=== PATIENT | male | born 1995 ===

== ENCOUNTER 2018-11-29 08:16 | Emergency (ER) | payer OTHER ==
[~2018-11-29] VITALS: Ht 180.3 cm; Wt 109.0 kg
--- NOTE | 2018-11-29 08:33 | NUR ---
PT TO ED FOR LBP X3-4 DAYS AND SORE THROAT SINCE LAST NIGHT. PT CONNECTED TO MONTITORS. VSS. NO NEEDS EXPRESSED. AWAITING EDMD ASSESSMENT.
[2018-11-29] MEDS ORDERED: KETOROLAC 30 MG/1 ML ONE (08:53)
[2018-11-29] MEDS ORDERED: METHOCARBAMOL 750 MG TABLET ONE (08:53)
[2018-11-29] MEDS ORDERED: METHOCARBAMOL 750 MG TABLET PO ONE (09:00)
[2018-11-29] MEDS ORDERED: KETOROLAC 30 MG/1 ML IM ONE (09:00)
--- NOTE | 2018-11-29 09:01 | NUR ---
UA COLLECTED. AND SENT. PT TO IMAGING AT THIS TIME.
[2018-11-29 09:16] LABS: MICROSCOPIC NOT IND
[2018-11-29 09:19] LABS: CULTURE INDICATED? NO
--- NOTE | 2018-11-29 09:22 | NUR ---
PT BACK FROM IMAGING. TOLERATED WELL. VSS. NO NEEDS EXPRESSED.
[2018-11-29 09:52] VITALS: BP 137/81
--- NOTE | 2018-11-29 09:52 | NUR ---
PT RESTING IN ROOM WITH FAMILY AT BS. VSS. NO NEEDS EXPRESSED. [facility]. ALL RESUTLS BACK. CHART UP FOR RECHECK.
== END 2018-11-29 10:28 | disposition home or self-care (01) ==
LOC: ED 10:17
DX: J02.8 Acute pharyngitis due to other specified organisms (principal); B97.89 Other viral agents as the cause of diseases classified elsewhere; M54.5 Low back pain
CPT/HCPCS: 72110; 81003; 87081; 87880; 96372; 99284; J1885

== ENCOUNTER 2018-12-01 06:32 | Emergency (ER) | payer OTHER, BC ==
[~2018-12-01] VITALS: Ht 182.9 cm; Wt 106.1 kg
[2018-12-01 06:38] VITALS: BP 141/91
[2018-12-01] MEDS ORDERED: DEXAMETHASONE 4 MG TABLET PO ONE (07:30)
[2018-12-01] MEDS ORDERED: DEXAMETHASONE 4 MG TABLET ONE (07:38)
[2018-12-01 08:06] LABS: BASOPHILS # (AUTO) 0.04 x10^3/uL (0-0.1); BASOPHILS % (AUTO) 1 % (0-1); EOSINOPHILS # (AUTO) 0.04 x10^3/uL (0-0.4); EOSINOPHILS % (AUTO) 0 % (1-7); LYMPHOCYTES # (AUTO) 1.15 x10^3/uL (1-3.4); LYMPHOCYTES % (AUTO) 13 % (22-44); MD NO; MEAN CORPUSCULAR HEMOGLOBIN 29.1 pg (27.5-34.5); MEAN CORPUSCULAR HGB CONC 32.2 g/dL (33.2-36.2); MEAN CORPUSCULAR VOLUME 90.2 fL (81-97); MEAN PLATELET VOLUME 7.5 fL (7.4-10.4); MONOCYTES # (AUTO) 0.93 x10^3/uL (0.2-0.8); MONOCYTES % (AUTO) 11 % (2-9); NEUTROPHILS # (AUTO) 6.51 x10^3/uL (1.8-6.8); NEUTROPHILS % (AUTO) 75 % (42-75); PLATELET COUNT 272 x10^3/uL (130-400); RED BLOOD COUNT 5.31 x10^6/uL (4.38-5.82); RED CELL DISTRIBUTION WIDTH 13.1 % (9.4-14.8)
[2018-12-01 08:08] LABS: ANION GAP 7 mmol/L (5-15); CALCIUM 9.7 mg/dL (8.5-10.1); CHLORIDE 105 mmol/L (98-107); CREATININE 0.96 mg/dL (0.7-1.3)
--- NOTE | 2018-12-01 08:36 | NUR ---
Patient given discharge instructions and they have confirmed that they understand the instructions. Patient ambulatory with steady gait.
== END 2018-12-01 08:52 | disposition home or self-care (01) ==
LOC: ED 07:14
DX: J02.8 Acute pharyngitis due to other specified organisms (principal); B97.89 Other viral agents as the cause of diseases classified elsewhere; E66.9 Obesity, unspecified
CPT/HCPCS: 36415; 80048; 85025; 86308; 99283

== ENCOUNTER 2021-03-22 11:28 | Emergency (ER) | payer OTHER, BC ==
[~2021-03-22] VITALS: Ht 185.4 cm; Wt 117.6 kg
[2021-03-22] MEDS ORDERED: ACETAMINOPHEN 500 MG TABLET PO ONE (12:00)
[2021-03-22] MEDS ORDERED: SODIUM CHLORIDE 0.9% 1,000ML IVBOLUS ONE (12:00)
[2021-03-22 12:14] LABS: BASOPHILS % (AUTO) 1 % (0-1); EOSINOPHILS % (AUTO) 0 % (1-7); LYMPHOCYTES % (AUTO) 12 % (22-44); MEAN CORPUSCULAR HEMOGLOBIN 30.4 pg (27.5-34.5); MEAN CORPUSCULAR HGB CONC 33.9 g/dL (33.2-36.2); MEAN PLATELET VOLUME 7.8 fL (7.4-10.4); MONOCYTES % (AUTO) 9 % (2-9); NEUTROPHILS % (AUTO) 79 % (42-75); PLATELET COUNT 203 x10^3/uL (130-400); RED CELL DISTRIBUTION WIDTH 14.5 % (9.4-14.8)
[2021-03-22 12:20] LABS: ALANINE AMINOTRANSFERASE 615 U/L (12-78); ALBUMIN 3.5 g/dL (3.4-5.0); ANION GAP 7 mmol/L (5-15); CALCIUM 8.9 mg/dL (8.5-10.1); CHLORIDE 102 mmol/L (98-107); CREATININE 1.06 mg/dL (0.7-1.3)
[2021-03-22 12:22] LABS: ALKALINE PHOSPHATASE 118 U/L (45-117); BILIRUBIN,TOTAL 0.3 mg/dL (0.2-1.0); TOTAL PROTEIN 8.6 g/dL (6.4-8.2)
[2021-03-22] MEDS ORDERED: ACETAMINOPHEN 500 MG TABLET ONE ×2 (14:41→15:17)
--- NOTE | 2021-03-22 14:46 | NUR ---
RUBBER FLAP CUTTER: PT PULLED BACK FOR VITAL SIGNS. MOTHER REPORTS SHE GAVE PATIENT [place] PILLS "5 MINUTES AGO." MOTHER IS NOT SURE WHAT THEY ARE BUT THINKS THEY WERE MOTRIN OR NAPROXEN. MOTHER DOES NOT HAVE BOTTLE.
--- NOTE | 2021-03-22 15:21 | NUR ---
PRECEPTOR RN: Pt to room from [facility] at this time. PER PT'S MOTHER SHE GAVE HIM 3 NAPROXEN TABLETS AT 1430 TODAY. PT MEDICATED PER AUG.
--- NOTE | 2021-03-22 17:22 | NUR ---
Covering primary nurse for break. Pt speaks full sentences, RR 22-27 o2 sats stable on RA 93-96%. Pt is in no acute distress. ERP Marcos at bedside discussing Regeneron, pt agrees with transfusion and then d/c home. IVF 1000ml infused.
[2021-03-22] MEDS ORDERED: FILTER 0.22 MICRON IV ONE (17:30)
[2021-03-22] MEDS ORDERED: CASIRIVIMAB 600 MG, IMDEVIMAB (REGN10987) 600 MG in SODIUM CHLORIDE 0.9% 250 ML IVPB ONE (17:30)
--- NOTE | 2021-03-22 17:38 | NUR ---
IS provided with instruct, pt returned demo, Encouraged use 4-5x an hour while awake. Waiting for regneron.
--- NOTE | 2021-03-22 19:00 | NUR ---
REGENKIMBERLY INFUSING, PT AGREES WITH TREATMENT AND CONSENT SIGNED.
[2021-03-22 21:25] VITALS: BP 117/60
== END 2021-03-22 21:38 | disposition home or self-care (01) ==
LOC: ED 11:30
DX: U07.1 COVID-19 (principal); J12.9 Viral pneumonia, unspecified; R94.31 Abnormal electrocardiogram [ECG] [EKG]
CPT/HCPCS: 36415; 71045; 80053; 83605; 84145; 85025; 87040; 87635; 93005; 96360; 99285; J7030; M0243